=== PATIENT | female | born 1990 | race Caucasian/White ===

== ENCOUNTER 2016-05-24 00:05 | Emergency (ER) | payer OTHER, MEDICAID ==
[2016-05-24] MEDS ORDERED: SULFAMETHOXAZOLE 800 MG/TRIMETHOPRIM 160 MG TABLET ONE (01:59)
[2016-05-24] MEDS ORDERED: CLINDAMYCIN HCL 150 MG CAPSULE ONE (01:59)
[2016-05-24] MEDS ORDERED: HYDROCODONE/ACETAMINOPHEN 5/325MG TABLET ONE (01:59)
== END 2016-05-24 02:21 | disposition home or self-care (01) ==
LOC: ED 00:05
DX: L02.31 Cutaneous abscess of buttock (principal); E11.9 Type 2 diabetes mellitus without complications
CPT/HCPCS: 99283 ×2; A9270 ×3